=== PATIENT | female | born 1970 | race African-American/Black ===

== ENCOUNTER 2022-10-18 08:58 | Emergency (ER) | payer BC ==
[~2022-10-18] VITALS: Ht 162.6 cm; Wt 56.0 kg
[2022-10-18 09:24] VITALS: BP 187/110
[2022-10-18] MEDS ORDERED: BACIOIN49 OP (10:08)
== END 2022-10-18 10:09 | disposition home or self-care (01) ==
LOC: ER 08:58
DX: H00.011 Hordeolum externum right upper eyelid (principal)